=== PATIENT | male | born 1975 | race Caucasian/White ===

== ENCOUNTER → 2023-10-12 15:49 | Outpatient (REF) | payer BC, SELFPAY | LOC: HWRAD 15:49 | PROVIDERS: ATTENDING PHYSICIAN Nurse Practitioner Family | DX: R05.9 Cough, unspecified (principal); J45.901 Unspecified asthma with (acute) exacerbation | CPT/HCPCS: 71046 ==

== ENCOUNTER 2025-03-30 06:07 | Day surgery (SDC) | payer BC, SELFPAY ==
[2025-03-30] VITALS (9 sets, daily range): BP systolic 130–147; BP diastolic 78–96; BMI 36.0
[2025-03-30] MEDS: NORMOSOL-R/PLASMALYTE-A 1000 IV (13:29)
[2025-03-30] MEDS: DILAUDID 0.25 MG IV (17:13)
[2025-03-30] MEDS: ZOFRAN 4 MG IV (17:30)
[2025-03-30] MEDS: MOTRIN 600 MG PO (18:16)
[2025-03-30] MEDS: ROXICODONE 5 MG PO (18:17)
[2025-03-30] MEDS: TYLENOL 650 MG PO (18:17)
== END 2025-03-30 18:59 | disposition home or self-care (01) ==
LOC: SDS 06:07
PROVIDERS: ATTENDING PHYSICIAN Orthopaedic Surgery Hand Surgery
DX: S46.011A Strain of muscle(s) and tendon(s) of the rotator cuff of right shoulder, initial encounter (principal); S43.431A Superior glenoid labrum lesion of right shoulder, initial encounter; X58.XXXA Exposure to other specified factors, initial encounter; M75.41 Impingement syndrome of right shoulder; M75.51 Bursitis of right shoulder
CPT/HCPCS: 29827; 29826; C1713